=== PATIENT | male | born 1990 | race Caucasian/White ===

== ENCOUNTER → 2023-11-08 15:54 | Outpatient (REF) | payer BC, SELFPAY | LOC: DHCBC HW 15:54 | PROVIDERS: ATTENDING PHYSICIAN Internal Medicine Cardiovascular Disease; FAMILY PHYSICIAN Physician Assistant Medical | DX: R55 Syncope and collapse (principal) | CPT/HCPCS: 93306 ==

== ENCOUNTER 2024-04-18 16:03 | Emergency (ER) | payer BC, SELFPAY ==
[2024-04-18 16:07] VITALS: BP 175/104; BMI 28.1
[2024-04-18 16:25] LABS: % Basophils 0.5 % (0-2); % Eosinophils 0.7 % (0-6); % Immature Granulocytes 0.4 % (0-0.5); % Lymphocytes 23.4 % (20.5-51.1); % Monocytes 6.2 % (1.7-9.3); % Neutrophils 68.8 % (42.2-75.2); Absolute Basophils 0.1 10^3/uL (0-0.2); Absolute Eosinophils 0.1 10^3/uL (0-0.7); Absolute Lymphocytes 2.6 10^3/uL (1.2-3.4); Absolute Monocytes 0.7 10^3/uL (0.1-0.6); Absolute Neutrophils 7.6 10^3/uL (1.4-6.5); Hematocrit 43.1 % (39.0-52.0); Hemoglobin 15.5 g/dL (13.0-18.0); Mean Corpuscular Hgb 28.9 pg (27.0-31.0); Mean Corpuscular Volume 80.4 fL (80.0-94.0); Mean Platelet Volume 11.1 fL (7.4-10.4); Nucleated Red Blood Cells % 0 % (-); Platelet Count 222 10^3/uL (130-400); Red Blood Cell Count 5.36 10^6/uL (4.70-6.10); Red Cell Dist. Width 12.3 % (11.5-14.5); White Blood Cell Count 11.1 10^3/uL (4.8-10.8)
[2024-04-18 16:43] LABS: ALT (SGPT) 25 U/L (0-50); AST (SGOT) 46 U/L (17-59); Albumin 5.1 g/dl (3.5-5.0); Alkaline Phosphatase 83 U/L (38-126); Blood Urea Nitrogen 23 mg/dl (9-20); Calcium 9.9 mg/dl (8.4-10.2); Carbon Dioxide 28 mmol/L (22-30); Chloride 102 mmol/L (98-107); Estimated Creatinine Clearance 96 ml/min; Glucose 86 mg/dl (70-99); Potassium 3.9 mmol/L (3.5-5.1); Sodium 139 mmol/L (135-145); Total Bilirubin 0.7 mg/dl (0.2-1.3); Total Protein 7.8 g/dl (6.3-8.2); eGFR > 60.00
[2024-04-18 16:47] LABS: Troponin I < 0.012 ng/ml
--- NOTE | 2024-04-18 19:35 | ED.GENMED ---
History of Present Illness
General
Chief Complaint: Chest Pain
Source: patient
Time Seen by Provider: 04/18/24 19:30
History of Present Illness
History of Present Illness:
33-year-old male presents to the emergency room complaining of feeling a sense of not being able to get a deep breath. Symptoms have been present for the past 2 or 3 days. In addition he has an occasional discomfort on the left side of his chest.
This is not constant. It is not related to deep breaths or movement but just comes and goes independently. No nausea, vomiting or diaphoresis. Patient is able to ambulate, walk up steps or do any kind of activity without increasing his symptoms
or limitation in his ability to perform these activities. Patient has had previous episodes such as this which are typically short-lived. He came today because it seems to be lasting longer. Patient notes that he had a syncopal episode about 4
months ago. This resulted in significant facial injuries that required surgical repair. In the wake of that event he has had 'all the tests you can have' including an echocardiogram and stress test. His workup has been negative. He does have
hypertension for which he takes amlodipine.
Past History
Past History
ED Past Medical History: HTN
ED Past Surgical History: Orthopedic
Social History
Tobacco: Smoker
Alcohol: Occasional
Personal:
Employment: Employed
Phy Exam
Physical Exam
Physical Exam:
General: Awake, Alert, Oriented X3. No acute distress.
Vitals: unremarkable
Head: Atraumatic
Eyes: Pupils equal, EOMI
Throat: Airway intact, no exudates
Neck: Trachea midline
Lungs: Clear and equal b/l
Heart: Regular rate, no murmurs
Abd: Soft, Nontender, No pulsatile mass
Neuro: Nonfocal
Skin: Warm, dry, no rash
Extremities: pulses equal b/l, no edema
Scores
Heart Score for Chest Pain Patients
STEMI patient?: Not applicable
Course
Orders/Labs/Results
Orders:
Orders
04/18/24 16:04
Electrocardiogram (*1) Urgent
Reason for Study: Chest Pain
04/18/24 16:05
EKG- Treatment ONCE
04/18/24 16:17
Complete Blood Count/With Diff Urgent
Comprehensive Metabolic Panel Urgent
Troponin I Urgent
04/18/24 19:34
CR Chest - 2 Views Urgent
Comment:
Reason For Exam: chest pain/sob
Abnormal Lab Results
04/18/24
16:17
WBC 11.1 H 10^3/uL
(4.8-10.8)
MPV 11.1 H fL
(7.4-10.4)
Absolute Neuts (auto) 7.6 H 10^3/uL
(1.4-6.5)
Absolute Monos (auto) 0.7 H 10^3/uL
(0.1-0.6)
BUN 23 H mg/dl
(9-20)
Albumin 5.1 H g/dl
(3.5-5.0)
04/18/24 16:17
04/18/24 16:17
Vital Signs
Initial and Last Documented VS:
Initial Vital Signs
Temp Pulse Resp BP Pulse Ox
98.5 F 94 16 175/104 99
04/18/24 16:07 04/18/24 16:07 04/18/24 16:07 04/18/24 16:07 04/18/24 16:07
Last Documented Vital Signs
Temp Pulse Resp BP Pulse Ox
98.5 F 86 16 169/100 100
04/18/24 16:07 04/18/24 20:19 04/18/24 16:07 04/18/24 20:19 04/18/24 20:19
MDM/Problems Addressed
Differential Diagnosis Includes:
htn, ptx, muscle strain,
MDM/Problems Addressed:
Patient presents complaining of not feeling as if he can take a deep breath. Patient has normal EKG. Patient's blood pressure is somewhat elevated but heart rate is normal. Physical exam is benign. No evidence of an unstable process. Patient
stable for discharge home.
Chronic conditions affecting care: HTN
*Pulse Oximetry
Patient hypoxic: no
*EKG
Interpreted by ED Provider?: Yes
Heart Rate: 84
Rate: normal
Rhythm: sinus
[place]: normal axis
Interval: normal interval
QRS Pattern: normal QRS
Ischemia: no ischemia
*Billing Checker Interpretation
Rate: normal
Interpretation: normal
Heart Rate: 84
Rhythm: sinus
*Critical Care Note
Total Time (30-74mins, 75-104mins- exclusive of procedures): Not Applicable
ED Attending Note
-
Portions of this chart may have been created with voice recognition software.� Occasional wrong word or��sound alike� substitutions may have occurred due to the inherent limitations of voice recognition software.
Discharge Plan
Departure
Patient Disposition: Home (Routine Discharge)
Date of Disposition: 04/18/24
Time of Disposition: 20:14
Patient with high blood pressure during this ER visit?: Yes
Condition: Good
Discharge Problem:
Chest pain
Instructions: Chest Pain PCP Follow Up
Prescriptions:
No Action
diclofenac potassium 50 mg tablet
50 mg PO BID PRN (Reason: pain) Qty: 14 0RF
ondansetron 4 mg Tablet,Disintegrating
4 mg PO BIDPRN PRN (Reason: nausea/vomiting) Qty: 10 0RF
Referrals:
Agnieszka Antoine PA-C [Family Provider] -
Interventions
Interventions:
*Risk Screen - Suicide Last Done: 04/18/24 16:07
*General Assessment Last Done: 04/18/24 19:23
*Neglect/Abuse Screening Last Done: 04/18/24 16:07
*Nursing Disposition Last Done: 04/18/24 20:25
ED- Cardiac Assessment Last Done: 04/18/24 19:22
ED- Pulmonary Assessment Last Done: 04/18/24 19:22
Discharge Date and Time
Discharge Date/Time: 04/18/24 20:26
Print Language: SLOVAK
[2024-04-18 20:19] VITALS: BP 169/100
== END 2024-04-18 20:26 | disposition home or self-care (01) ==
LOC: EMR 16:03
PROVIDERS: Emergency Medicine; EMERGENCY PHYSICIAN Emergency Medicine; FAMILY PHYSICIAN Physician Assistant Medical
DX: R07.89 Other chest pain (principal); R06.02 Shortness of breath; I10 Essential (primary) hypertension; Z79.899 Other long term (current) drug therapy; F17.200 Nicotine dependence, unspecified, uncomplicated
CPT/HCPCS: 99283; 71046; 80053; 84484; 85025; 93005

== ENCOUNTER → 2024-08-14 17:24 | Outpatient (REF) | payer BC, SELFPAY | LOC: RAD 17:24 | PROVIDERS: ATTENDING PHYSICIAN Physician Assistant Medical | DX: M51.26 Other intervertebral disc displacement, lumbar region (principal) | CPT/HCPCS: 72110 ==

== ENCOUNTER → 2024-08-31 16:23 | Outpatient (REF) | payer BC, SELFPAY | LOC: RAD 16:23 | PROVIDERS: ATTENDING PHYSICIAN Physician Assistant; FAMILY PHYSICIAN Physician Assistant Medical | DX: S05.50XA Penetrating wound with foreign body of unspecified eyeball, initial encounter (principal) | CPT/HCPCS: 70030 ==